=== PATIENT | female | born 1950 | race Caucasian/White ===

== ENCOUNTER 2016-03-03 23:13 | Emergency (ER) | payer OTHER ==
[2016-03-04 01:04] LABS: ANION GAP 8 MEQ/L (8-16); BLOOD UREA NITROGEN 17 MG/DL (7-18); CALCIUM LEVEL 9.2 MG/DL (8.8-10.2); CARBON DIOXIDE LEVEL 27 MEQ/L (21-32); CHLORIDE LEVEL 104 MEQ/L (98-107); GLOMERULAR FILTRATION RATE > 60.0 (>45); GLUCOSE, FASTING 116 MG/DL (80-110); POTASSIUM SERUM 3.5 MEQ/L (3.5-5.1); SODIUM LEVEL 139 MEQ/L (136-145)
[2016-03-04 01:28] LABS: MICROSCOPIC INDICATED? MAN YES (NO)
[2016-03-04 01:30] LABS: BASO # 0.2 K/mm3 (0.0-0.2); BASO % 1.3 % (0.0-1.0); EOS # 0.4 K/mm3 (0.0-0.50); LARGE UNSTAINED CELL # 0.1 K/mm3 (0.0-0.4); LARGE UNSTAINED CELL % 0.7 % (0.0-4.0); LYMPH # 2.4 K/mm3 (1.5-4.5); LYMPH % 19.6 % (24.0-44.0); MEAN CORPUSCULAR HGB CONC 32.7 g/dl (32.0-36.5); MEAN CORPUSCULAR VOLUME 94.9 fl (80.0-96.0); MONO # 0.5 K/mm3 (0.0-0.8); MONO % 4.1 % (0.0-5.0); NEUTROPHILS # 8.4 K/mm3 (1.8-7.7); NEUTROPHILS % 71.3 % (36.0-66.0); PLATELET COUNT, AUTOMATED 325 k/mm3 (150-450); RED CELL DISTRIBUTION WIDTH 13.5 % (11.5-14.5); WHITE BLOOD COUNT 11.7 K/mm3 (4.0-10.0)
[2016-03-04 01:40] LABS: MICROSCOPIC EXAM PERFORMED
[2016-03-04 01:46] LABS: RBC, URINE TNTC /hpf (0-3)
[2016-03-04 01:48] LABS: BACTERIA, URINE SMALL AMOUNT; HYALINE CAST, URINE NONE SEEN /lpf (0-1); SQUAMOUS EPITHELIAL CELL URINE SMALL AMOUNT /hpf (SMALL AMT)
--- NOTE | 2016-03-04 01:50 | REPUSA ---
CT of the abdomen and pelvis without contrast Clinical statement: hematuria. Technique: Multiple axial CT images were obtained from the base of the lungs to the floor of the pelv is utilizing 5 mm axial slices without administration of contrast. Coronal and sagittal reconstructio ns were also obtained. No comparison is available. Findings: Chest: The visualized lung bases are clear. Abdomen: The kidneys are normal in size bilaterally. There is no evidence of hydronephrosis or nephro lithiasis. The liver, spleen, pancreas, gallbladder and adrenal glands are unremarkable. The aorta de monstrates normal caliber and contour. There is no abdominal lymphadenopathy or ascites. Pelvis: The bowel is unremarkable, with no obstructive or inflammatory changes. The appendix is lori l. The urinary bladder is within normal limits. There is no pelvic lymphadenopathy or ascites. The ot her pelvic structures appear unremarkable. Bones: There are no suspicious osseous abnormalities seen. Impression: Unremarkable CT examination of the abdomen and pelvis.
[2016-03-04] MEDS ORDERED: PHENAZOPYRIDINE 100 MG TAB As Ordered ONE (03:25)
[2016-03-04] MEDS ORDERED: CIPROFLOXACIN 500 MG TAB As Ordered ONE (03:25)
--- NOTE | 2016-03-04 03:40 | EDDOCDS ---
Nurse's Notes [facility] Name: Marilyn Man Age: 65 yrs Sex: Female : 1950 Arrival Date: 03/03/2016 Time: 23:13 Bed 7 Private MD: NO PRIMARY PHYSICIAN, . Diagnosis: Acute cystitis with hematuria Presentation: 03/03 23:23 Presenting complaint: Patient states: started having vaginal bleeding tonight with sls1 clots, reports frequent urination and when she voids " feels like everything is going to fall out", reports hysterectomy 16 years ago. Risk factors: The patient reports no loss of conciousness prior to arrival. The patient has had a hysterectomy more than five years ago. Adult Sepsis Screening: The patient does not have new or worsening altered mentation. Patient's respiratory rate is less than 22. Systolic blood pressure is greater than 100. Patient has a qSOFA score of 0- Negative Sepsis Screen. Suicide/Homicide risk assessment- the patient denies having any suicidal and/or homicidal ideations and does not present with any other emotional, behavioral or mental health complaints. Status: Patient is not a visitor services representative or dependent. Transition of care: patient was not received from another setting of care. 23:23 Acuity: FRANK Level 3 sls1 23:23 Method Of Arrival: Walkin/Carried/Asstd sls1 Triage Assessment: 23:26 General: Appears in no apparent distress, Behavior is appropriate for age, cooperative. sls1 Pain: Denies pain. Pt Declines HIV testing. Neurological: Level of Consciousness is awake, alert. Respiratory: No deficits noted. : Reports urinary frequency vaginal bleeding that is bright red with clots moderate flow. Historical: - Allergies: Darvocet-N 100; gnosticism; flu vaccine; - Home Meds: 1. Synthroid 50 mcg Oral tab 1 tab once daily 2. aspirin 81 mg Oral tab 1 tab once daily 3. aclovair daily 4. Vitamin D Oral 1,000 unit daily 5. unknown cholesterol medication - PMHx: Hypothyroidism; Hypercholesterolemia; - PSHx: Hysterectomy; hand surgery; - Social history: Smoking status: Patient states was never smoker of tobacco. No barriers to communication noted, The patient speaks fluent Cuban, Speaks appropriately for age. - Family history: Not pertinent. - : The pt / caregiver states he / she is not on anticoagulants. Home medication list is obtained from the patient. - Exposure Risk Screening:: None identified. Screenin/18 00:00 Screening information is obtained from the patient. Fall risk: No risks identified. js15 Assistance ADL's: requires no assistance with activities of daily living. Abuse/DV Screen: The patient / caregiver reports he/she is: not in a situation that causes fear, pain or injury. Nutritional screening: No deficits noted. Advance Directives: There is no active DNR order. home support is adequate. Assessment: 00:00 General: Appears in no apparent distress, Behavior is anxious, appropriate for age, js15 cooperative. Pain: Denies pain. Neurological: Level of Consciousness is awake, alert, obeys commands, Oriented to person, place, time. Cardiovascular: Capillary refill < 3 seconds. Respiratory: Airway is patent Respiratory effort is even, unlabored, Respiratory pattern is regular, symmetrical. Respiratory: GI: Abdomen is non- distended Abd is soft and non tender X 4 quads. Derm: Skin is pink, warm & dry. 01:00 Reassessment: Patient appears in no apparent distress at this time. Pt resting on js15 stretcher, respirations even and unlabored; skin pink, warm, dry. 02:00 Reassessment: Patient appears in no apparent distress at this time. Patient denies pain js15 at this time. Pt resting on stretcher, using cell phone, respirations even and unlabored; skin pink, warm, dry. 03:30 General: Appears in no apparent distress, comfortable, Behavior is appropriate for age, js15 cooperative. Pain: Denies pain. Neurological: Level of Consciousness is awake, alert, obeys commands, Oriented to person, place, time. Respiratory: Airway is patent Respiratory effort is even, unlabored, Respiratory pattern is regular, symmetrical. Derm: Skin is pink, warm & dry. Vital Signs: 03/03 23:16 BP 153 / 83; Pulse 83; Resp 18 S; Temp 97.2(O); Pulse Ox 99% on R/A; Weight 78.02 kg gr2 (R); Height 5 ft. 5 in. (165.10 cm) (R); Pain 3/10; 03/04 03:25 BP 127 / 65; Pulse 85; Resp 20; Temp 97.3(O); Pulse Ox 95% on R/A; Pain 0/10; ls3 03/03 23:16 Body Mass Index 28.62 (78.02 kg, 165.10 cm) gr2 Vitals: 03/03 23:16 Log In Time: March 03, 2016 at 23:16. gr2 ED Course: 23:15 Patient visited by Lamont Agudelo. gr2 23:15 Patient moved to Waiting gr2 23:16 NO PRIMARY PHYSICIAN, . is Private Physician. gr2 23:17 Patient visited by Lamont Agudelo. gr2 23:17 Patient moved to Pre RCE gr2 23:24 Triage Initiated sls1 23:37 Patient moved to 7 sls1 03/04 00:00 The patient / caregiver is instructed regarding the plan of care and ED course. js15 00:10 Wisam Aden DO is Attending Physician. mm11 00:10 Patient visited by Wisam Aden DO. mm11 00:19 Patient visited by Wisam Aden DO. mm11 00:34 Inserted saline lock: 18 gauge in left antecubital area The patient tolerated the js15 procedure well. 00:34 Urine Culture Sent. js15 00:34 Type & Screen Sent. js15 00:35 BMP Sent. js15 00:35 CBC with Diff Sent. js15 00:54 Patient visited by yAsha Gomez PCA. karolina 00:54 Assist provider with pelvic exam: Set up pelvic tray. karolina 02:00 Patient visited by Aysha Gomez PCA. karolina 02:10 CT ABD & PELVIS: No Contrast Returned. EDMS 03:26 Patient visited by Chiqui Thompson PCA. ls3 Administered Medications: 03:37 Drug: Ciprofloxacin 500 mg [ciprofloxacin 500 mg tablet (1 tabs)] Route: PO; js15 03:37 Drug: Phenazopyridine 200 mg [phenazopyridine 100 mg tablet (2 tabs)] Route: PO; js15 Order Results: Lab Order: CBC with Diff; SPEC'M 03/04/16 00:32 Test: WHITE BLOOD COUNT; Value: 11.7; Range: 4.0-10.0; Abnormal: Above high normal; Units: K/mm3; Status: F Test: RED BLOOD COUNT; Value: 4.60; Range: 4.00-5.40; Units: M/mm3; Status: F Test: HEMOGLOBIN; Value: 14.3; Range: 12.0-16.0; Units: g/dl; Status: F Test: HEMATOCRIT; Value: 43.6; Range: 36.0-47.0; Units: %; Status: F Test: MEAN CORPUSCULAR VOLUME; Value: 94.9; Range: 80.0-96.0; Units: fl; Status: F Test: MEAN CORPUSCULAR HEMOGLOBIN; Value: 31.0; Range: 27.0-33.0; Units: pg; Status: F Test: MEAN CORPUSCULAR HGB CONC; Value: 32.7; Range: 32.0-36.5; Units: g/dl; Status: F Test: RED CELL DISTRIBUTION WIDTH; Value: 13.5; Range: 11.5-14.5; Units: %; Status: F Test: PLATELET COUNT, AUTOMATED; Value: 325; Range: 150-450; Units: k/mm3; Status: F Test: NEUTROPHILS %; Value: 71.3; Range: 36.0-66.0; Abnormal: Above high normal; Units: %; Status: F Test: LYMPH %; Value: 19.6; Range: 24.0-44.0; Abnormal: Below low normal; Units: %; Status: F Test: MONO %; Value: 4.1; Range: 0.0-5.0; Units: %; Status: F Test: EOS %; Value: 3.0; Range: 0.0-3.0; Units: %; Status: F Test: BASO %; Value: 1.3; Range: 0.0-1.0; Abnormal: Above high normal; Units: %; Status: F Test: LARGE UNSTAINED CELL %; Value: 0.7; Range: 0.0-4.0; Units: %; Status: F Test: NEUTROPHILS #; Value: 8.4; Range: 1.8-7.7; Abnormal: Above high normal; Units: K/mm3; Status: F Test: LYMPH #; Value: 2.4; Range: 1.5-4.5; Units: K/mm3; Status: F Test: MONO #; Value: 0.5; Range: 0.0-0.8; Units: K/mm3; Status: F Test: EOS #; Value: 0.4; Range: 0.0-0.50; Units: K/mm3; Status: F Test: BASO #; Value: 0.2; Range: 0.0-0.2; Units: K/mm3; Status: F Test: LARGE UNSTAINED CELL #; Value: 0.1; Range: 0.0-0.4; Units: K/mm3; Status: F Lab Order: BMP; SPEC'M 03/04/16 00:32 Test: GLUCOSE, FASTING; Value: 116; Range: 80-110; Abnormal: Above high normal; Units: MG/DL; Status: F Test: BLOOD UREA NITROGEN; Value: 17; Range: 7-18; Units: MG/DL; Status: F Test: CREATININE FOR GFR; Value: 0.70; Range: 0.55-1.02; Units: MG/DL; Status: F Test: GLOMERULAR FILTRATION RATE; Value: > 60.0; Range: >45; Status: F Test: SODIUM LEVEL; Value: 139; Range: 136-145; Units: MEQ/L; Status: F Test: POTASSIUM SERUM; Value: 3.5; Range: 3.5-5.1; Units: MEQ/L; Status: F Test: CHLORIDE LEVEL; Value: 104; Range: 98-107; Units: MEQ/L; Status: F Test: CARBON DIOXIDE LEVEL; Value: 27; Range: 21-32; Units: MEQ/L; Status: F Test: ANION GAP; Value: 8; Range: 8-16; Units: MEQ/L; Status: F Test: CALCIUM LEVEL; Value: 9.2; Range: 8.8-10.2; Units: MG/DL; Status: F Test Note: ; Units are mL/min/1.73 m2 Chronic Kidney Disease Staging per NKF: Stage I & II GFR >=60 Normal to Mildly Decreased Stage III GFR 30-59 Moderately Decreased Stage IV GFR 15-29 Severely Decreased Stage V GFR <15 Very Little GFR Left ESRD GFR <15 on GOL[employer] Lab Order: Type & Screen; SPEC'M 03/04/16 00:32 Test: BLOOD TYPE; Value: A NEG; Status: F Test: AB SCREEN (INDIRECT BRENDA)GEL; Value: NEGATIVE; Status: F Lab Order: URINALYSIS MANUAL; SPEC'M 03/04/16 00:32 Test: APPEARANCE, URINE MANUAL; Value: TURBID; Range: CLEAR; Abnormal: Above high normal; Status: F Test: COLOR, URINE MANUAL; Value: BROWN; Range: YELLOW; Abnormal: Above high normal; Status: F Test: PH,URINE MAN; Value: 5.5; Range: 5.0 - 9.0; Units: UNITS; Status: F Test: SPECIFIC GRAVITY,URINE MANUAL; Value: 1.020; Range: 1.002-1.035; Status: F Test: PROTEIN, URINE MANUAL; Value: 2+; Range: NEGATIVE; Abnormal: Above high normal; Units: mg/dL; Status: F Test: GLUCOSE, URINE (UA) MANUAL; Value: NEGATIVE; Range: NEGATIVE; Units: mg/dL; Status: F Test: KETONE, URINE MANUAL; Value: NEGATIVE; Range: NEGATIVE; Units: mg/dL; Status: F Test: UROBILINOGEN, URINE MANUAL; Value: NORMAL; Range: NORMAL; Units: mg/dl; Status: F Test: BILIRUBIN, URINE MANUAL; Value: NEGATIVE; Range: NEGATIVE; Status: F Test: NITRITE, URINE MANUAL; Value: POSITIVE; Range: NEGATIVE; Abnormal: Above high normal; Status: F Test: LEUKOCYTE ESTERASE, URINE MAN; Value: POSITIVE; Range: NEGATIVE; Abnormal: Above high normal; Status: F Test: BLOOD URINE MANUAL; Value: POSITIVE; Range: NEGATIVE; Abnormal: Above high normal; Status: F Lab Order: MICROSCOPIC, URINE; SPEC'M 03/04/16 00:32 Test: WBC, URINE; Value: 10-15; Range: 0-3; Abnormal: Above high normal; Units: /hpf; Status: F Test: RBC, URINE; Value: TNTC; Range: 0-3; Abnormal: Above high normal; Units: /hpf; Status: F Test: SQUAMOUS EPITHELIAL CELL URINE; Value: SMALL AMOUNT; Range: SMALL AMT; Units: /hpf; Status: F Test: BACTERIA, URINE; Value: SMALL AMOUNT; Range: NONE; Abnormal: Above high normal; Status: F Test: HYALINE CAST, URINE; Value: NONE SEEN; Range: 0-1; Units: /lpf; Status: F Test: MICROSCOPIC EXAM; Value: PERFORMED; Status: F Radiology Order: CT ABD & PELVIS: No Contrast Test: CT ABD & PELVIS: No Contrast REASON FOR EXAMINATION: gross hematuria, new onset; ; CT of the abdomen and pelvis without contrast; Clinical statement: hematuria.; Technique: Multiple axial CT images were obtained from the base of the lungs to the floor of the pelv; is utilizing 5 mm axial slices without administration of contrast. Coronal and sagittal reconstructio; ns were also obtained.; No comparison is available.; Findings:; Chest: The visualized lung bases are clear.; Abdomen: The kidneys are normal in size bilaterally. There is no evidence of hydronephrosis or nephro; lithiasis. The liver, spleen, pancreas, gallbladder and adrenal glands are unremarkable. The aorta de; monstrates normal caliber and contour. There is no abdominal lymphadenopathy or ascites.; Pelvis: The bowel is unremarkable, with no obstructive or inflammatory changes. The appendix is lori; l. The urinary bladder is within normal limits. There is no pelvic lymphadenopathy or ascites. The ot; her pelvic structures appear unremarkable.; Bones: There are no suspicious osseous abnormalities seen.; Impression: Unremarkable CT examination of the abdomen and pelvis.; ; Outcome: 01:27 CT Study completed. js15 02:48 Discharge ordered by Provider. mm11 03:39 Discharge Assessment: Patient awake, alert and oriented x 3. No cognitive and/or js15 functional deficits noted. Patient verbalized understanding of disposition instructions. patient administered narcotics - no. The following High Risk Discharge criteria are identified: None. Discharged to home ambulatory. Condition: stable. Discharge instructions given to patient, Instructed on discharge instructions, follow up and referral plans. medication usage, Demonstrated understanding of instructions, medications, Pt was receptive of discharge instructions/ teaching. Prescriptions given X 2. Property sent home with patient. 03:40 Patient left the ED. js15 Signatures: Dispatcher [employer] EDMS Wisam Aden DO DO mm11 Aysha Gomez, GROUT PUMP OPERATOR GROUT PUMP OPERATOR karolina Alma Solis, RN RN sls1 Lamont Agudelo gr2 Marbella MtzRN RN js15 Chiqui Thompson, GROUT PUMP OPERATOR GROUT PUMP OPERATOR ls3 Corrections: (The following items were deleted from the chart) 01:30 00:34 URINALYSIS+LAB sent. js15 EDMS MTDD
--- NOTE | 2016-03-04 03:41 | EDDOCDS ---
Physician Documentation [facility] Name: Marilyn Man Age: 65 yrs Sex: Female : 1950 Arrival Date: 03/03/2016 Time: 23:13 Bed 7 Private MD: NO PRIMARY PHYSICIAN, . Disposition: 03/04/16 02:48 Discharged to Home/Self Care. Impression: Acute cystitis with hematuria. - Condition is Stable. - Discharge Instructions: Urinary Tract Infection, Urinary Tract Infection, [id number]. - Prescriptions for Pyridium 200 mg Oral Tablet - take 1 tablet by ORAL route every 8 hours for 3 days; 9 tablet. Cipro 500 mg Oral Tablet - take 1 tablet by ORAL route every 12 hours; 10 tablet. - Medication Reconciliation, Local Pharmacy Hours form. - Follow up: Private Physician; When: As previously arranged; Reason: Continuance of care. - Problem is an acute exacerbation. - Symptoms have improved. Historical: - Allergies: Darvocet-N 100; presybeterian; flu vaccine; - Home Meds: 1. Synthroid 50 mcg Oral tab 1 tab once daily 2. aspirin 81 mg Oral tab 1 tab once daily 3. aclovair daily 4. Vitamin D Oral 1,000 unit daily 5. unknown cholesterol medication - PMHx: Hypothyroidism; Hypercholesterolemia; - PSHx: Hysterectomy; hand surgery; - Social history: Smoking status: Patient states was never smoker of tobacco. No barriers to communication noted, The patient speaks fluent French, Speaks appropriately for age. - Family history: Not pertinent. - : The pt / caregiver states he / she is not on anticoagulants. Home medication list is obtained from the patient. - Exposure Risk Screening:: None identified. Vital Signs: 03/03 23:16 BP 153 / 83; Pulse 83; Resp 18 S; Temp 97.2(O); Pulse Ox 99% on R/A; Weight 78.02 kg / gr2 172 lbs (R); Height 5 ft. 5 in. (165.10 cm) (R); Pain 3/10; 03/04 03:25 BP 127 / 65; Pulse 85; Resp 20; Temp 97.3(O); Pulse Ox 95% on R/A; Pain 0/10; ls3 03/03 23:16 Body Mass Index 28.62 (78.02 kg, 165.10 cm) gr2 MDM: 00:23 Set up pelvic ordered. mm11 00:23 CBC with Diff Ordered. EDMS 00:23 BMP Ordered. EDMS 00:23 Type & Screen Ordered. EDMS 00:23 Urine Culture Ordered. EDMS 00:58 CT ABD & PELVIS: No Contrast Ordered. EDMS 01:30 URINALYSIS MANUAL Ordered. EDMS 01:30 MICROSCOPIC, URINE Ordered. EDMS 01:45 Financial registration complete. hs2 02:28 CBC with Diff Reviewed. mm11 02:28 BMP Reviewed. mm11 02:28 URINALYSIS MANUAL Reviewed. mm11 02:28 MICROSCOPIC, URINE Reviewed. mm11 02:28 Type & Screen Reviewed. mm11 02:28 CT ABD & PELVIS: No Contrast Reviewed. mm11 02:48 Ciprofloxacin 500 mg PO once ordered. mm11 02:48 Phenazopyridine 200 mg PO once ordered. mm11 Administered Medications: 03:37 Drug: Ciprofloxacin 500 mg [ciprofloxacin 500 mg tablet (1 tabs)] Route: PO; js15 03:37 Drug: Phenazopyridine 200 mg [phenazopyridine 100 mg tablet (2 tabs)] Route: PO; js15 Signatures: Dispatcher [employer] EDMS Wisam Aden, DO DO mm11 Alma Solis RN RN sls1 Marbella Mtz,RN RN js15 Jeanna Mckinley, Reg Reg hs2 The chart was reviewed and I authenticate all verbal orders and agree with the evaluation and treatment provided.Corrections: (The following items were deleted from the chart) 01:30 00:23 URINALYSIS+LAB ordered. EDMS EDMS MTDD
--- NOTE | 2016-03-06 04:40 | EDDOCDS ---
Nurse's Notes Name: Marilyn Man Age: 65 yrs Sex: Female : 1950 Arrival Date: 03/03/2016 Time: 23:13 Bed 7 Private MD: NO PRIMARY PHYSICIAN, . Diagnosis: Acute cystitis with hematuria Presentation: 03/03 23:23 Presenting complaint: Patient states: started having vaginal bleeding tonight with sls1 clots, reports frequent urination and when she voids " feels like everything is going to fall out", reports hysterectomy 16 years ago. Risk factors: The patient reports no loss of conciousness prior to arrival. The patient has had a hysterectomy more than five years ago. Adult Sepsis Screening: The patient does not have new or worsening altered mentation. Patient's respiratory rate is less than 22. Systolic blood pressure is greater than 100. Patient has a qSOFA score of 0- Negative Sepsis Screen. Suicide/Homicide risk assessment- the patient denies having any suicidal and/or homicidal ideations and does not present with any other emotional, behavioral or mental health complaints. Status: Patient is not a support services coordinator or dependent. Transition of care: patient was not received from another setting of care. 23:23 Acuity: FRANK Level 3 sls1 23:23 Method Of Arrival: Walkin/Carried/Asstd sls1 Triage Assessment: 23:26 General: Appears in no apparent distress, Behavior is appropriate for age, cooperative. sls1 Pain: Denies pain. Pt Declines HIV testing. Neurological: Level of Consciousness is awake, alert. Respiratory: No deficits noted. : Reports urinary frequency vaginal bleeding that is bright red with clots moderate flow. Historical: - Allergies: Darvocet-N 100; jew; flu vaccine; - Home Meds: 1. Synthroid 50 mcg Oral tab 1 tab once daily 2. aspirin 81 mg Oral tab 1 tab once daily 3. aclovair daily 4. Vitamin D Oral 1,000 unit daily 5. unknown cholesterol medication - PMHx: Hypothyroidism; Hypercholesterolemia; - PSHx: Hysterectomy; hand surgery; - Social history: Smoking status: Patient states was never smoker of tobacco. No barriers to communication noted, The patient speaks fluent Danish, Speaks appropriately for age. - Family history: Not pertinent. - : The pt / caregiver states he / she is not on anticoagulants. Home medication list is obtained from the patient. - Exposure Risk Screening:: None identified. Screenin/18 00:00 Screening information is obtained from the patient. Fall risk: No risks identified. js15 Assistance ADL's: requires no assistance with activities of daily living. Abuse/DV Screen: The patient / caregiver reports he/she is: not in a situation that causes fear, pain or injury. Nutritional screening: No deficits noted. Advance Directives: There is no active DNR order. home support is adequate. Assessment: 00:00 General: Appears in no apparent distress, Behavior is anxious, appropriate for age, js15 cooperative. Pain: Denies pain. Neurological: Level of Consciousness is awake, alert, obeys commands, Oriented to person, place, time. Cardiovascular: Capillary refill < 3 seconds. Respiratory: Airway is patent Respiratory effort is even, unlabored, Respiratory pattern is regular, symmetrical. Respiratory: GI: Abdomen is non- distended Abd is soft and non tender X 4 quads. Derm: Skin is pink, warm & dry. 01:00 Reassessment: Patient appears in no apparent distress at this time. Pt resting on js15 stretcher, respirations even and unlabored; skin pink, warm, dry. 02:00 Reassessment: Patient appears in no apparent distress at this time. Patient denies pain js15 at this time. Pt resting on stretcher, using cell phone, respirations even and unlabored; skin pink, warm, dry. 03:30 General: Appears in no apparent distress, comfortable, Behavior is appropriate for age, js15 cooperative. Pain: Denies pain. Neurological: Level of Consciousness is awake, alert, obeys commands, Oriented to person, place, time. Respiratory: Airway is patent Respiratory effort is even, unlabored, Respiratory pattern is regular, symmetrical. Derm: Skin is pink, warm & dry. Vital Signs: 03/03 23:16 BP 153 / 83; Pulse 83; Resp 18 S; Temp 97.2(O); Pulse Ox 99% on R/A; Weight 78.02 kg gr2 (R); Height 5 ft. 5 in. (165.10 cm) (R); Pain 3/10; 03/04 03:25 BP 127 / 65; Pulse 85; Resp 20; Temp 97.3(O); Pulse Ox 95% on R/A; Pain 0/10; ls3 03/03 23:16 Body Mass Index 28.62 (78.02 kg, 165.10 cm) gr2 Vitals: 03/03 23:16 Log In Time: March 03, 2016 at 23:16. gr2 ED Course: 23:15 Patient visited by Lamont Agudelo. gr2 23:15 Patient moved to Waiting gr2 23:16 NO PRIMARY PHYSICIAN, . is Private Physician. gr2 23:17 Patient visited by Lamont Agudelo. gr2 23:17 Patient moved to Pre RCE gr2 23:24 Triage Initiated sls1 23:37 Patient moved to 7 [facility] 03/04 00:00 The patient / caregiver is instructed regarding the plan of care and ED course. js15 00:10 Wisam Aden DO is Attending Physician. mm11 00:10 Patient visited by Wisam Aden DO. mm11 00:19 Patient visited by Wisam Aden DO. mm11 00:34 Inserted saline lock: 18 gauge in left antecubital area The patient tolerated the js15 procedure well. 00:34 Urine Culture Sent. js15 00:34 Type & Screen Sent. js15 00:35 BMP Sent. js15 00:35 CBC with Diff Sent. js15 00:54 Patient visited by Aysha Gomez PCA. karolina 00:54 Assist provider with pelvic exam: Set up pelvic tray. karolina 02:00 Patient visited by Aysha Gomez PCA. karolina 02:10 CT ABD & PELVIS: No Contrast Returned. EDMS 03:26 Patient visited by Chiqui Thompson PCA. ls3 03:44 [facility] [place] was scanned into [employer] and attached to record. hs2 03:48 Patient name changed from Marilyn\\S\\\\S\\Magda\\S\\ to Marilyn\\S\\Jeanne\\S\\Magda. EDMS 09:16 T-Sheet-- Draft Copy was scanned into [employer] and attached to record. gb Administered Medications: 03:37 Drug: Ciprofloxacin 500 mg [ciprofloxacin 500 mg tablet (1 tabs)] Route: PO; js15 03:37 Drug: Phenazopyridine 200 mg [phenazopyridine 100 mg tablet (2 tabs)] Route: PO; js15 Order Results: Lab Order: CBC with Diff; SPEC'M 03/04/16 00:32 Test: WHITE BLOOD COUNT; Value: 11.7; Range: 4.0-10.0; Abnormal: Above high normal; Units: K/mm3; Status: F Test: RED BLOOD COUNT; Value: 4.60; Range: 4.00-5.40; Units: M/mm3; Status: F Test: HEMOGLOBIN; Value: 14.3; Range: 12.0-16.0; Units: g/dl; Status: F Test: HEMATOCRIT; Value: 43.6; Range: 36.0-47.0; Units: %; Status: F Test: MEAN CORPUSCULAR VOLUME; Value: 94.9; Range: 80.0-96.0; Units: fl; Status: F Test: MEAN CORPUSCULAR HEMOGLOBIN; Value: 31.0; Range: 27.0-33.0; Units: pg; Status: F Test: MEAN CORPUSCULAR HGB CONC; Value: 32.7; Range: 32.0-36.5; Units: g/dl; Status: F Test: RED CELL DISTRIBUTION WIDTH; Value: 13.5; Range: 11.5-14.5; Units: %; Status: F Test: PLATELET COUNT, AUTOMATED; Value: 325; Range: 150-450; Units: k/mm3; Status: F Test: NEUTROPHILS %; Value: 71.3; Range: 36.0-66.0; Abnormal: Above high normal; Units: %; Status: F Test: LYMPH %; Value: 19.6; Range: 24.0-44.0; Abnormal: Below low normal; Units: %; Status: F Test: MONO %; Value: 4.1; Range: 0.0-5.0; Units: %; Status: F Test: EOS %; Value: 3.0; Range: 0.0-3.0; Units: %; Status: F Test: BASO %; Value: 1.3; Range: 0.0-1.0; Abnormal: Above high normal; Units: %; Status: F Test: LARGE UNSTAINED CELL %; Value: 0.7; Range: 0.0-4.0; Units: %; Status: F Test: NEUTROPHILS #; Value: 8.4; Range: 1.8-7.7; Abnormal: Above high normal; Units: K/mm3; Status: F Test: LYMPH #; Value: 2.4; Range: 1.5-4.5; Units: K/mm3; Status: F Test: MONO #; Value: 0.5; Range: 0.0-0.8; Units: K/mm3; Status: F Test: EOS #; Value: 0.4; Range: 0.0-0.50; Units: K/mm3; Status: F Test: BASO #; Value: 0.2; Range: 0.0-0.2; Units: K/mm3; Status: F Test: LARGE UNSTAINED CELL #; Value: 0.1; Range: 0.0-0.4; Units: K/mm3; Status: F Lab Order: [facility]; SPEC'M 03/04/16 00:32 Test: GLUCOSE, FASTING; Value: 116; Range: 80-110; Abnormal: Above high normal; Units: MG/DL; Status: F Test: BLOOD UREA NITROGEN; Value: 17; Range: 7-18; Units: MG/DL; Status: F Test: CREATININE FOR GFR; Value: 0.70; Range: 0.55-1.02; Units: MG/DL; Status: F Test: GLOMERULAR FILTRATION RATE; Value: > 60.0; Range: >45; Status: F Test: SODIUM LEVEL; Value: 139; Range: 136-145; Units: MEQ/L; Status: F Test: POTASSIUM SERUM; Value: 3.5; Range: 3.5-5.1; Units: MEQ/L; Status: F Test: CHLORIDE LEVEL; Value: 104; Range: 98-107; Units: MEQ/L; Status: F Test: CARBON DIOXIDE LEVEL; Value: 27; Range: 21-32; Units: MEQ/L; Status: F Test: ANION GAP; Value: 8; Range: 8-16; Units: MEQ/L; Status: F Test: CALCIUM LEVEL; Value: 9.2; Range: 8.8-10.2; Units: MG/DL; Status: F Test Note: ; Units are mL/min/1.73 m2 Chronic Kidney Disease Staging per NKF: Stage I & II GFR >=60 Normal to Mildly Decreased Stage III GFR 30-59 Moderately Decreased Stage IV GFR 15-29 Severely Decreased Stage V GFR <15 Very Little GFR Left ESRD GFR <15 on REEL STRIPPER Lab Order: Type & Screen; SPEC'M 03/04/16 00:32 Test: BLOOD TYPE; Value: A NEG; Status: F Test: AB SCREEN (INDIRECT BRENDA)GEL; Value: NEGATIVE; Status: F Lab Order: Urine Culture; SPEC'M 03/04/16 00:32 Test: URINE CULTURE; Value: ORGANISM 1: ESCHERICHIA COLI; Status: F Test: URINE CULTURE; Value: ESCHERICHIA COLI; Status: F Test: URINE CULTURE; Value: COLONY COUNT CFU/ml >100,000; Status: F Test: URINE CULTURE; Value: GRAM NEG SENSI - VITEK 80; Status: F Test: URINE CULTURE; Value: Method: VIT2; Status: F Test: URINE CULTURE; Value: EXTD BRD SPCTRM BETA LACTAMASE -; Status: F Test: URINE CULTURE; Value: TRIMETHOPRIM/SULFAMETHOXAZOLE <=20 S; Status: F Test: URINE CULTURE; Value: AMPICILLIN <=2 S; Status: F Test: URINE CULTURE; Value: GENTAMICIN <=1 S; Status: F Test: URINE CULTURE; Value: NITROFURANTOIN <=16 S; Status: F Test: URINE CULTURE; Value: CEFAZOLIN <=4 S; Status: F Test: URINE CULTURE; Value: LEVOFLOXACIN <=0.12 S; Status: F Test: URINE CULTURE; Value: TOBRAMYCIN <=1 S; Status: F Test: URINE CULTURE; Value: CEFTRIAXONE <=1 S; Status: F Test: URINE CULTURE; Value: CEFTAZIDIME <=1 S; Status: F Test: URINE CULTURE; Value: AMPICILLIN/SULBACTAM <=2 S; Status: F Test: URINE CULTURE; Value: PIPERACILLIN/TAZOBACTAM <=4 S; Status: F Test: URINE CULTURE; Value: AZTREONAM <=1 S; Status: F Test: URINE CULTURE; Value: ERTAPENEM <=0.5 S; Status: F Test: URINE CULTURE; Value: MEROPENEM <=0.25 S; Status: F Test: URINE CULTURE; Value: TIGECYCLINE <=0.5 S; Status: F Test: URINE CULTURE; Value: CEFEPIME <=1 S; Status: F Lab Order: URINALYSIS MANUAL; SPEC'M 03/04/16 00:32 Test: APPEARANCE, URINE MANUAL; Value: TURBID; Range: CLEAR; Abnormal: Above high normal; Status: F Test: COLOR, URINE MANUAL; Value: BROWN; Range: YELLOW; Abnormal: Above high normal; Status: F Test: PH,URINE MAN; Value: 5.5; Range: 5.0 - 9.0; Units: UNITS; Status: F Test: SPECIFIC GRAVITY,URINE MANUAL; Value: 1.020; Range: 1.002-1.035; Status: F Test: PROTEIN, URINE MANUAL; Value: 2+; Range: NEGATIVE; Abnormal: Above high normal; Units: mg/dL; Status: F Test: GLUCOSE, URINE (UA) MANUAL; Value: NEGATIVE; Range: NEGATIVE; Units: mg/dL; Status: F Test: KETONE, URINE MANUAL; Value: NEGATIVE; Range: NEGATIVE; Units: mg/dL; Status: F Test: UROBILINOGEN, URINE MANUAL; Value: NORMAL; Range: NORMAL; Units: mg/dl; Status: F Test: BILIRUBIN, URINE MANUAL; Value: NEGATIVE; Range: NEGATIVE; Status: F Test: NITRITE, URINE MANUAL; Value: POSITIVE; Range: NEGATIVE; Abnormal: Above high normal; Status: F Test: LEUKOCYTE ESTERASE, URINE MAN; Value: POSITIVE; Range: NEGATIVE; Abnormal: Above high normal; Status: F Test: BLOOD URINE MANUAL; Value: POSITIVE; Range: NEGATIVE; Abnormal: Above high normal; Status: F Lab Order: MICROSCOPIC, URINE; SPEC'M 03/04/16 00:32 Test: WBC, URINE; Value: 10-15; Range: 0-3; Abnormal: Above high normal; Units: /hpf; Status: F Test: RBC, URINE; Value: TNTC; Range: 0-3; Abnormal: Above high normal; Units: /hpf; Status: F Test: SQUAMOUS EPITHELIAL CELL URINE; Value: SMALL AMOUNT; Range: SMALL AMT; Units: /hpf; Status: F Test: BACTERIA, URINE; Value: SMALL AMOUNT; Range: NONE; Abnormal: Above high normal; Status: F Test: HYALINE CAST, URINE; Value: NONE SEEN; Range: 0-1; Units: /lpf; Status: F Test: MICROSCOPIC EXAM; Value: PERFORMED; Status: F Radiology Order: CT ABD & PELVIS: No Contrast Test: CT ABD & PELVIS: No Contrast REASON FOR EXAMINATION: gross hematuria, new onset; ; CT of the abdomen and pelvis without contrast; Clinical statement: hematuria.; Technique: Multiple axial CT images were obtained from the base of the lungs to the floor of the pelv; is utilizing 5 mm axial slices without administration of contrast. Coronal and sagittal reconstructio; ns were also obtained.; No comparison is available.; Findings:; Chest: The visualized lung bases are clear.; Abdomen: The kidneys are normal in size bilaterally. There is no evidence of hydronephrosis or nephro; lithiasis. The liver, spleen, pancreas, gallbladder and adrenal glands are unremarkable. The aorta de; monstrates normal caliber and contour. There is no abdominal lymphadenopathy or ascites.; Pelvis: The bowel is unremarkable, with no obstructive or inflammatory changes. The appendix is lori; l. The urinary bladder is within normal limits. There is no pelvic lymphadenopathy or ascites. The ot; her pelvic structures appear unremarkable.; Bones: There are no suspicious osseous abnormalities seen.; Impression: Unremarkable CT examination of the abdomen and pelvis.; ; Outcome: 01:27 CT Study completed. js15 02:48 Discharge ordered by Provider. mm11 03:39 Discharge Assessment: Patient awake, alert and oriented x 3. No cognitive and/or js15 functional deficits noted. Patient verbalized understanding of disposition instructions. patient administered narcotics - no. The following High Risk Discharge criteria are identified: None. Discharged to home ambulatory. Condition: stable. Discharge instructions given to patient, Instructed on discharge instructions, follow up and referral plans. medication usage, Demonstrated understanding of instructions, medications, Pt was receptive of discharge instructions/ teaching. Prescriptions given X 2. Property sent home with patient. 03:40 Patient left the ED. js15 Signatures: Dispatcher [employer] EDMS Catina Jimenez, Reg Reg gb Wisam Aden DO DO mm11 Aysha Gomez, CLERICAL PRODUCTION WORKER CLERICAL PRODUCTION WORKER Alma Gonzalez, RN RN sls1 Lamont Agudelo gr2 Marbella Mtz,RN RN js15 Chiqui Thompson, CLERICAL PRODUCTION WORKER CLERICAL PRODUCTION WORKER ls3 Jeanna Mckinley, Reg Reg hs2 Corrections: (The following items were deleted from the chart) 01:30 00:34 URINALYSIS+LAB sent. js15 EDMS Chart Complete MTDD
--- NOTE | 2016-03-06 04:40 | EDDOCDS ---
Physician Documentation [facility] Name: Marilyn Man Age: 65 yrs Sex: Female : 1950 Arrival Date: 03/03/2016 Time: 23:13 Bed 7 Private MD: NO PRIMARY PHYSICIAN, . Disposition: 03/04/16 02:48 Discharged to Home/Self Care. Impression: Acute cystitis with hematuria. - Condition is Stable. - Discharge Instructions: Urinary Tract Infection, Urinary Tract Infection, [id number]. - Prescriptions for Pyridium 200 mg Oral Tablet - take 1 tablet by ORAL route every 8 hours for 3 days; 9 tablet. Cipro 500 mg Oral Tablet - take 1 tablet by ORAL route every 12 hours; 10 tablet. - Medication Reconciliation, Local Pharmacy Hours form. - Follow up: Private Physician; When: As previously arranged; Reason: Continuance of care. - Problem is an acute exacerbation. - Symptoms have improved. Historical: - Allergies: Darvocet-N 100; mu-ism; flu vaccine; - Home Meds: 1. Synthroid 50 mcg Oral tab 1 tab once daily 2. aspirin 81 mg Oral tab 1 tab once daily 3. aclovair daily 4. Vitamin D Oral 1,000 unit daily 5. unknown cholesterol medication - PMHx: Hypothyroidism; Hypercholesterolemia; - PSHx: Hysterectomy; hand surgery; - Social history: Smoking status: Patient states was never smoker of tobacco. No barriers to communication noted, The patient speaks fluent Italian, Speaks appropriately for age. - Family history: Not pertinent. - : The pt / caregiver states he / she is not on anticoagulants. Home medication list is obtained from the patient. - Exposure Risk Screening:: None identified. Vital Signs: 03/03 23:16 BP 153 / 83; Pulse 83; Resp 18 S; Temp 97.2(O); Pulse Ox 99% on R/A; Weight 78.02 kg / gr2 172 lbs (R); Height 5 ft. 5 in. (165.10 cm) (R); Pain 3/10; 03/04 03:25 BP 127 / 65; Pulse 85; Resp 20; Temp 97.3(O); Pulse Ox 95% on R/A; Pain 0/10; ls3 03/03 23:16 Body Mass Index 28.62 (78.02 kg, 165.10 cm) gr2 MDM: 00:23 Set up pelvic ordered. mm11 00:23 CBC with Diff Ordered. EDMS 00:23 BMP Ordered. EDMS 00:23 Type & Screen Ordered. EDMS 00:23 Urine Culture Ordered. EDMS 00:58 CT ABD & PELVIS: No Contrast Ordered. EDMS 01:30 URINALYSIS MANUAL Ordered. EDMS 01:30 MICROSCOPIC, URINE Ordered. EDMS 01:45 Financial registration complete. hs2 02:28 CBC with Diff Reviewed. mm11 02:28 BMP Reviewed. mm11 02:28 URINALYSIS MANUAL Reviewed. mm11 02:28 MICROSCOPIC, URINE Reviewed. mm11 02:28 Type & Screen Reviewed. mm11 02:28 CT ABD & PELVIS: No Contrast Reviewed. mm11 02:48 Ciprofloxacin 500 mg PO once ordered. mm11 02:48 Phenazopyridine 200 mg PO once ordered. mm11 03:44 [facility] [place] was scanned into [employer] and attached to record. hs2 09:16 T-Sheet-- Draft Copy was scanned into [employer] and attached to record. gb Administered Medications: 03:37 Drug: Ciprofloxacin 500 mg [ciprofloxacin 500 mg tablet (1 tabs)] Route: PO; js15 03:37 Drug: Phenazopyridine 200 mg [phenazopyridine 100 mg tablet (2 tabs)] Route: PO; js15 Signatures: Dispatcher [employer] EDMS Catina Jimenez, Reg Reg gb Wisam Aden DO DO mm11 Alma Solis, RN RN sls1 Marbella Mtz RN RN js15 Jeanna Mckinley, Reg Reg hs2 The chart was reviewed and I authenticate all verbal orders and agree with the evaluation and treatment provided.Corrections: (The following items were deleted from the chart) 01:30 00:23 URINALYSIS+LAB ordered. EDMS EDMS Attachments: 03:44 [facility] hs2 09:16 T-Sheet-- Draft Copy gb Chart Complete MTDD
--- NOTE | 2016-03-06 04:40 | EDDOCDS ---
Physician Documentation [facility] Name: Marilyn Man Age: 65 yrs Sex: Female : 1950 Arrival Date: 03/03/2016 Time: 23:13 Bed 7 Private MD: NO PRIMARY PHYSICIAN, . Disposition: 03/04/16 02:48 Discharged to Home/Self Care. Impression: Acute cystitis with hematuria. - Condition is Stable. - Discharge Instructions: Urinary Tract Infection, Urinary Tract Infection, [id number]. - Prescriptions for Pyridium 200 mg Oral Tablet - take 1 tablet by ORAL route every 8 hours for 3 days; 9 tablet. Cipro 500 mg Oral Tablet - take 1 tablet by ORAL route every 12 hours; 10 tablet. - Medication Reconciliation, Local Pharmacy Hours form. - Follow up: Private Physician; When: As previously arranged; Reason: Continuance of care. - Problem is an acute exacerbation. - Symptoms have improved. Historical: - Allergies: Darvocet-N 100; hindu; flu vaccine; - Home Meds: 1. Synthroid 50 mcg Oral tab 1 tab once daily 2. aspirin 81 mg Oral tab 1 tab once daily 3. aclovair daily 4. Vitamin D Oral 1,000 unit daily 5. unknown cholesterol medication - PMHx: Hypothyroidism; Hypercholesterolemia; - PSHx: Hysterectomy; hand surgery; - Social history: Smoking status: Patient states was never smoker of tobacco. No barriers to communication noted, The patient speaks fluent Vietnamese, Speaks appropriately for age. - Family history: Not pertinent. - : The pt / caregiver states he / she is not on anticoagulants. Home medication list is obtained from the patient. - Exposure Risk Screening:: None identified. Vital Signs: 03/03 23:16 BP 153 / 83; Pulse 83; Resp 18 S; Temp 97.2(O); Pulse Ox 99% on R/A; Weight 78.02 kg / gr2 172 lbs (R); Height 5 ft. 5 in. (165.10 cm) (R); Pain 3/10; 03/04 03:25 BP 127 / 65; Pulse 85; Resp 20; Temp 97.3(O); Pulse Ox 95% on R/A; Pain 0/10; ls3 03/03 23:16 Body Mass Index 28.62 (78.02 kg, 165.10 cm) gr2 MDM: 00:23 Set up pelvic ordered. mm11 00:23 CBC with Diff Ordered. EDMS 00:23 BMP Ordered. EDMS 00:23 Type & Screen Ordered. EDMS 00:23 Urine Culture Ordered. EDMS 00:58 CT ABD & PELVIS: No Contrast Ordered. EDMS 01:30 URINALYSIS MANUAL Ordered. EDMS 01:30 MICROSCOPIC, URINE Ordered. EDMS 01:45 Financial registration complete. hs2 02:28 CBC with Diff Reviewed. mm11 02:28 BMP Reviewed. mm11 02:28 URINALYSIS MANUAL Reviewed. mm11 02:28 MICROSCOPIC, URINE Reviewed. mm11 02:28 Type & Screen Reviewed. mm11 02:28 CT ABD & PELVIS: No Contrast Reviewed. mm11 02:48 Ciprofloxacin 500 mg PO once ordered. mm11 02:48 Phenazopyridine 200 mg PO once ordered. mm11 03:44 [facility] [place] Agreement was scanned into [employer] and attached to record. hs2 09:16 T-Sheet-- Draft Copy was scanned into [employer] and attached to record. gb Administered Medications: 03:37 Drug: Ciprofloxacin 500 mg [ciprofloxacin 500 mg tablet (1 tabs)] Route: PO; js15 03:37 Drug: Phenazopyridine 200 mg [phenazopyridine 100 mg tablet (2 tabs)] Route: PO; js15 Signatures: Dispatcher [employer] EDMS Catina Jimenez, Reg Reg gb Wisam Aden DO DO mm11 Alma Solis, RN RN sls1 Marbella Mtz RN RN js15 Jeanna Mckinley, Reg Reg hs2 The chart was reviewed and I authenticate all verbal orders and agree with the evaluation and treatment provided.Corrections: (The following items were deleted from the chart) 01:30 00:23 URINALYSIS+LAB ordered. EDMS EDMS Attachments: 03:44 [facility] [place] hs2 09:16 T-Sheet-- Draft Copy gb Chart Complete MTDD
== END 2016-03-04 03:40 | disposition home or self-care (01) ==
LOC: M ED 23:13
DX: N30.91 Cystitis, unspecified with hematuria (principal); E03.9 Hypothyroidism, unspecified; E78.00 Pure hypercholesterolemia, unspecified; Z79.82 Long term (current) use of aspirin; Z79.899 Other long term (current) drug therapy; Z88.5 Allergy status to narcotic agent; Z88.8 Allergy status to other drugs, medicaments and biological substances

== ENCOUNTER → 2022-04-14 | Outpatient (CLI) | payer MEDICARE ==
[2022-04-14 10:12] LABS: HEMOGLOBIN A1c 6.4 % (4.0-6.0)
[2022-04-14 10:17] LABS: THYROID STIMULATING HORMONE 0.857 uIU/ML (0.55-4.78)
[2022-04-14 10:19] LABS: TOTAL 25(OH) VITAMIN D 57.1 NG/ML (20.0-100.0)
[2022-04-14 10:21] LABS: FREE T4 1.66 NG/DL (0.89-1.76)
[2022-04-14 10:23] LABS: ALBUMIN 4.2 G/DL (3.2-5.2); ALKALINE PHOSPHATASE 67 U/L (46-116); ALT/SGPT 45 U/L (7.0-40); AST/SGOT 32 U/L (<34); BILIRUBIN,TOTAL 1.1 MG/DL (0.3-1.2); BLOOD UREA NITROGEN 13 MG/DL (9-23); CALCIUM LEVEL 9.1 MG/DL (8.3-10.6); CARBON DIOXIDE LEVEL 27 MMOL/L (20-31); CHLORIDE LEVEL 106 MMOL/L (98-107); CHOLESTEROL LEVEL 122 MG/DL (<200); CHOLESTEROL RISK RATIO 2.45 (<5); GLOMERULAR FILTRATION RATE > 60.0 (>45); GLUCOSE, FASTING 113 MG/DL (74-106); HDL CHOLESTEROL 49.6 MG/DL (>40); LDL CHOLESTEROL 43.4 MG/DL (<100); NON-HDL-C 72 MG/DL; POTASSIUM SERUM 4.1 MMOL/L (3.5-5.1); SODIUM LEVEL 141 MMOL/L (136-145); TOTAL PROTEIN 7.3 G/DL (5.7-8.2); TRIGLYCERIDES LEVEL 145 MG/DL (<150)
== END ==
LOC: M WUC 08:21
PROVIDERS: ATTEND Nurse Practitioner Family
DX: E55.9 Vitamin D deficiency, unspecified (principal); E11.22 Type 2 diabetes mellitus with diabetic chronic kidney disease; E78.2 Mixed hyperlipidemia

== ENCOUNTER → 2022-12-31 | Outpatient (REF) | payer MEDICARE | LOC: M LAB REF 16:09 | PROVIDERS: ATTEND Student in an Organized Health Care Education/Training Program | DX: R10.30 Lower abdominal pain, unspecified (principal) ==